=== PATIENT | male | born 1965 | race Hispanic/Latino ===

== ENCOUNTER 2020-02-09 07:39 | Day surgery (SDC) | payer MEDICARE, MEDICAID ==
[~2020-02-09] VITALS: Ht 167.6 cm; Wt 56.2 kg
[~2020-02-09 07:39] MED LIST: AMLODIPINE BESY10 MG PO; ANORO ELLIPTA 61 AER IN; CARVEDILOL6.25 MG PO; PROAIR HFA108 MCG/AC IN
[2020-02-09] MEDS ORDERED: AUGMENTIN250 MG/5 M PO (10:45)
[2020-02-09] MEDS ORDERED: PERCOCET 5/325M1 TAB PO (10:46)
[2020-02-09 10:58] VITALS: BP 117/73
== END 2020-02-09 11:14 | disposition home or self-care (01) ==
LOC: ORM 07:39
PROVIDERS: ATTEND Surgery
PROC: 0JB90ZZ Excision of Buttock Subcutaneous Tissue and Fascia, Open Approach (ICD-10-PCS; principal; 2020-02-09)
DX: L05.91 Pilonidal cyst without abscess (principal); I10 Essential (primary) hypertension; F17.210 Nicotine dependence, cigarettes, uncomplicated; Z93.3 Colostomy status; Z85.048 Personal history of other malignant neoplasm of rectum, rectosigmoid junction, and anus; Z90.49 Acquired absence of other specified parts of digestive tract; Z20.828 Contact with and (suspected) exposure to other viral communicable diseases
CPT/HCPCS: C9290; J0131; J1100